=== PATIENT | male | born 1980 ===

== ENCOUNTER → 2019-05-06 | Emergency (ER) | payer OTHER ==
[~2019-05-06] MED LIST: Bacitracin 1 PK ONE; HYDROcodone/Acetaminophen 5/325 mg Tablet ONE; Ibuprofen 800 MG TAB ONE
== END ==
LOC: BURERS 04:38
DX: S76.912A Strain of unspecified muscles, fascia and tendons at thigh level, left thigh, initial encounter (principal); S00.12XA Contusion of left eyelid and periocular area, initial encounter; S50.11XA Contusion of right forearm, initial encounter; T70.29XA Other effects of high altitude, initial encounter; Z79.899 Other long term (current) drug therapy; V89.2XXA Person injured in unspecified motor-vehicle accident, traffic, initial encounter
CPT/HCPCS: 99284